=== PATIENT | female | born 1970 | race Caucasian/White ===

== ENCOUNTER → 2023-10-20 15:27 | Outpatient (REF) | payer BC, SELFPAY | LOC: HWRCS 15:27 | PROVIDERS: ATTENDING PHYSICIAN Nurse Practitioner | DX: I34.0 Nonrheumatic mitral (valve) insufficiency (principal) | CPT/HCPCS: 93306 ==

== ENCOUNTER 2023-11-11 18:15 | Emergency (ER) | payer BC, SELFPAY ==
[2023-11-11] VITALS (8 sets, daily range): BP systolic 139–162; BP diastolic 79–89; PULSE 99–122; BMI 21.2
--- NOTE | 2023-11-11 18:41 | ED.GENMED ---
History of Present Illness
General
Chief Complaint: Vaginal Bleeding
Source: patient
Exam Limitations: none
Time Seen by Provider: 11/11/23 18:41
Nursing documentation reviewed up to this point in time: agreed with
Travel History
Have you had any contact with someone who has COVID-19?: No
Do you have any symptoms of coronavirus? Fever > 100 degrees, chills, cough, shortness of breath, sore throat, loss of taste or smell, muscle aches, or headache?: No
History of Present Illness
History of Present Illness:
53-year-old female history of Fibromyalgia, GERD, iron deficiency anemia, presents stating she is having 'heavy menstrual bleeding' for the past 3 days. Today she felt lightheaded when she stood, she felt heart palpitations, and states 'I am
concerned about my blood volume.'
She states she was soaking a pad an hour 3 days ago, bleeding has slowed some and today she was using a pad every 2 hours. She denies abdominal pain.
She states she only wants to know what her blood count is because she has already had a comprehensive [facility] workup, had an ultrasound 2 months ago which shows uterine fibroids, so she already knows 'all of that.'
She does not take her iron supplements regularly as it 'bothers my stomach.'
Past History
Past History
ED Past Medical History: Other (Fibromyalgia, gastroparesis)
Social History
Tobacco: Non-smoker
Alcohol: None
Personal:
Living: with family
Review of Systems
Review of Systems
Allergies reviewed?: Yes
All Other Systems: ROS reviewed and negative except as documented in HPI and ROS
Constitutional: Denies fever or fatigue
Respiratory: Denies trouble breathing
Cardiac: Reports palpitations; Denies chest pain
ABD/GI: Denies abdominal pain, nausea, vomiting or diarrhea
: Reports bleeding (Heavy vaginal bleeding)
Musculoskeletal: Reports no symptoms
Skin: Reports no symptoms
Neurological: Reports no symptoms
Phy Exam
Physical Exam
Physical Exam:
GENERAL: No acute distress. A&Ox3.
CONSTITUTIONAL: Afebrile.
EYES: Clear, conjunctivae normal
ENMT: moist mucus membranes, Pharynx nl
RESPIRATORY: Regular respirations, nonlabored, lungs clear.
CARDIOVASCULAR: Regular rate and rhythm, no murmurs, no rubs.
GI: Soft, nontender, normal BS
: Menstrual pad observed with about 2 TBSP blood
MUSCULOSKELETAL: Moves with ease. Well perfused.
SKIN: Warm, dry, pink
PSYCH: Normal mood and affect. Well kept, interactive and appropriate
NEUROLOGIC: Awake, alert and oriented. No focal neurological deficits
Course
Orders/Labs/Results
Orders:
Orders
11/11/23 19:27
Type+Screen Urgent
CMP [Comprehensive Metabolic Panel] Stat
Complete Blood Count/With Diff Urgent
11/11/23 19:29
Orthostatic VS- Treatment ONCE
Abnormal Lab Results
11/11/23
19:27
Hgb 11.9 L g/dL
(12.0-16.0)
Hct 34.8 L %
(37.0-47.0)
RDW 15.7 H %
(11.5-14.5)
Lymphocytes % 20.1 L %
(20.5-51.1)
Glucose 109 H mg/dl
(70-99)
11/11/23 19:27
11/11/23 19:27
Vital Signs
Initial and Last Documented VS:
Initial Vital Signs
Temp Pulse Resp BP Pulse Ox
99.0 F 130 16 150/79 98
11/11/23 18:19 11/11/23 18:19 11/11/23 18:19 11/11/23 18:19 11/11/23 18:19
Last Documented Vital Signs
Temp Pulse Resp BP Pulse Ox
99.0 F 106 22 139/79 97
11/11/23 18:19 11/11/23 21:15 11/11/23 21:15 11/11/23 21:00 11/11/23 21:00
MDM/Problems Addressed
Differential Diagnosis Includes:
Dysfunctional uterine bleeding, anemia
MDM/Problems Addressed:
53-year-old female history of Fibromyalgia, GERD, iron deficiency anemia, presents stating she is having 'heavy menstrual bleeding' for the past 3 days. Today she felt lightheaded when she stood, she felt heart palpitations, and states 'I am
concerned about my blood volume.'
She states she was soaking a pad an hour 3 days ago, bleeding has slowed some and today she was using a pad every 2 hours. She denies abdominal pain.
She states she only wants to know what her blood count is because she has already had a comprehensive [facility] workup, had an ultrasound 2 months ago which shows uterine fibroids, so she already knows 'all of that.'
She does not take her iron supplements regularly as it 'bothers my stomach.'
11/11/2023 1932 PM
product assurance engineer during her stay reveals a heart rate of
CBC: Unremarkable Hgb on low side of normal
CMP: Normal
Patient informed that her hemoglobin is on the low end of normal but nothing needing emergent attention.
Again, offered Ultrasound but pt kindly declined and will contact her [facility] doctor on Monday (2 days)
Prescription for Lysteda sent to her pharmacy
She is appreciative of the care
*Critical Care Note
Total Time (30-74mins, 75-104mins- exclusive of procedures): Not Applicable
ED Attending Note
-
Portions of this chart may have been created with voice recognition software.� Occasional wrong word or��sound alike� substitutions may have occurred due to the inherent limitations of voice recognition software.
Discharge Plan
Departure
Patient Disposition: Home (Routine Discharge)
Date of Disposition: 11/11/23
Time of Disposition: 20:59
Patient with high blood pressure during this ER visit?: No
Condition: Good
Discharge Problem:
Abnormal vaginal bleeding
Instructions: Heavy Periods (DC)
Prescriptions:
New
tranexamic acid 650 mg tablet
650 mg PO TID 5 Days Qty: 15 0RF
No Action
acetaminophen-codeine 300-30 mg tablet
1 tab PO Q6H PRN (Reason: pain) Qty: 10 0RF
Referrals:
Your, [facility] doctor [Other] - Call in 1-3 days for appt
Ivana South CRNP [Family Provider] -
Activity Restrictions/Additional Instructions:
As we discussed, your lab work shows nothing worrisome. Your hemoglobin is on the low side of normal.
I sent a prescription to your pharmacy for the Lysteda to help slow or stop the bleeding. I sent it to your pharmacy so pick it up tomorrow and start it. Take it 3 times a day for up to 5 days. You may stop it if your bleeding slows down before 5
days.
Call your [facility] doctor on Monday and inform of today's visit.
Interventions
Interventions:
*Risk Screen - Suicide Last Done: 11/11/23 18:19
*General Assessment Last Done: 11/11/23 19:32
*Neglect/Abuse Screening Last Done: 11/11/23 18:19
ED- Fall Risk Assessment Last Done: 11/11/23 21:18
*ED COVID-19 Vaccine History Last Done: 11/11/23 18:19
*Nursing Disposition Last Done: 11/11/23 21:18
ED-Female Genitourinary Assessment Last Done: 11/11/23 19:33
Discharge Date and Time
Discharge Date/Time: 11/11/23 21:21
[2023-11-11 19:37] LABS: % Basophils 0.3 % (0-2); % Eosinophils 0.5 % (0-6); % Immature Granulocytes 0.1 % (0-0.5); % Lymphocytes 20.1 % (20.5-51.1); % Monocytes 8.8 % (1.7-9.3); % Neutrophils 70.2 % (42.2-75.2); Absolute Lymphocytes 1.5 10^3/uL (1.2-3.4); Absolute Monocytes 0.6 10^3/uL (0.1-0.6); Absolute Neutrophils 5.1 10^3/uL (1.4-6.5); Hematocrit 34.8 % (37.0-47.0); Hemoglobin 11.9 g/dL (12.0-16.0); Mean Corp Hgb Conc. 34.2 g/dL (33.0-37.0); Mean Corpuscular Hgb 28.2 pg (27.0-31.0); Mean Corpuscular Volume 82.5 fL (81.0-99.0); Mean Platelet Volume 8.9 fL (7.4-10.4); Nucleated Red Blood Cells % 0 %; Platelet Count 318 10^3/uL (130-400); Red Blood Cell Count 4.22 10^6/uL (4.20-5.40); Red Cell Dist. Width 15.7 % (11.5-14.5); White Blood Cell Count 7.3 10^3/uL (4.8-10.8)
[2023-11-11 19:48] LABS: ALT (SGPT) 14 U/L (0-35); AST (SGOT) 25 U/L (14-36); Albumin 4.2 g/dl (3.5-5.0); Alkaline Phosphatase 47 U/L (38-126); Blood Urea Nitrogen 9 mg/dl (7-17); Calcium 8.9 mg/dl (8.4-10.2); Carbon Dioxide 24 mmol/L (22-30); Chloride 104 mmol/L (98-107); Estimated Creatinine Clearance 74 ml/min; Glucose 109 mg/dl (70-99); Potassium 3.5 mmol/L (3.5-5.1); Sodium 135 mmol/L (135-145); Total Bilirubin 0.5 mg/dl (0.2-1.3); eGFR > 60.00
== END 2023-11-11 21:21 | disposition home or self-care (01) ==
LOC: EMR 18:15
PROVIDERS: Registered Nurse; EMERGENCY PHYSICIAN Emergency Medicine; FAMILY PHYSICIAN Nurse Practitioner
DX: N93.8 Other specified abnormal uterine and vaginal bleeding (principal); N92.0 Excessive and frequent menstruation with regular cycle; R42 Dizziness and giddiness; R00.2 Palpitations; M79.7 Fibromyalgia; K21.9 Gastro-esophageal reflux disease without esophagitis; D50.9 Iron deficiency anemia, unspecified; D25.9 Leiomyoma of uterus, unspecified; K31.84 Gastroparesis; Z88.8 Allergy status to other drugs, medicaments and biological substances
CPT/HCPCS: 99283; 80053; 85025; 86850; 86900; 86901

== ENCOUNTER 2023-11-13 10:09 | Emergency (ER) | payer BC, SELFPAY ==
[2023-11-13 10:11] VITALS: BP 137/102
--- NOTE | 2023-11-13 10:26 | ED.GENMED ---
History of Present Illness
General
Chief Complaint: Vaginal Bleeding
Source: patient
Exam Limitations: none
Time Seen by Provider: 11/13/23 10:21
Nursing documentation reviewed up to this point in time: agreed with
Travel History
Have you had any contact with someone who has COVID-19?: No
Do you have any symptoms of coronavirus? Fever > 100 degrees, chills, cough, shortness of breath, sore throat, loss of taste or smell, muscle aches, or headache?: No
History of Present Illness
History of Present Illness:
53-year-old female here for 2nd visit in 3 days for heavy vaginal bleeding. She is here for the same thing 2 days ago and evaluated by this examiner. It was determined at that time not to do an ultrasound at her request as she had this similar
symptoms 2 months ago and had an ultrasound that showed fibroids which she already knew she had and she knows she needs to make a [facility] appointment which she has not done yet. Hemoglobin on that day was 11.9 she was hemodynamically stable. I
discharged her on Lysteda and referred her to [facility].
She states she took the Lysteda yesterday and her bleeding slowed down so she didn't take any more. Today upon arising, had a 'gush' of vaginal bleeding.
She is due to go to [place] for 's mom's and wants to be sure she is stable to go.
She called [facility] doctor this a.m. and couldn't get appt for 2 weeks.
Past History
Past History
ED Past Medical History: Other (Fibromyalgia, gastroparesis, uterine fibroids)
Social History
Tobacco: Non-smoker
Alcohol: None
Personal:
Living: with family
Review of Systems
Review of Systems
Allergies reviewed?: Yes
All Other Systems: ROS reviewed and negative except as documented in HPI and ROS
Constitutional: Denies fever or fatigue
Respiratory: Denies trouble breathing
Cardiac: Denies chest pain
ABD/GI: Denies abdominal pain or nausea
: Reports bleeding
Skin: Reports no symptoms
Neurological: Reports no symptoms
Phy Exam
Physical Exam
Physical Exam:
GENERAL: No acute distress. A&Ox3.
CONSTITUTIONAL: Afebrile.
EYES: clear, conjunctivae normal
ENMT: moist mucus membranes, Pharynx nl
RESPIRATORY: Regular respirations, nonlabored, lungs clear.
CARDIOVASCULAR: Regular rate and rhythm, no murmurs, no rubs.
GI: Soft, nontender, normal BS
small amount blood on pad
MUSCULOSKELETAL: Moves with ease. Well perfused.
SKIN: Warm, dry, pink
PSYCH: Normal mood and affect. Well kept, interactive and appropriate
NEUROLOGIC: Awake, alert and oriented. No focal neurological deficits
Course
Orders/Labs/Results
Orders:
Orders
11/13/23 10:21
US Pelvis W Transvag Combined Urgent
Reason For Exam: heavy vag bleeding
11/13/23 10:34
Complete Blood Count/With Diff Urgent
Abnormal Lab Results
11/13/23
10:34
RBC 3.96 L 10^6/uL
(4.20-5.40)
Hgb 11.2 L g/dL
(12.0-16.0)
Hct 33.0 L %
(37.0-47.0)
RDW 15.7 H %
(11.5-14.5)
11/13/23 10:34
Vital Signs
Initial and Last Documented VS:
Initial Vital Signs
Temp Pulse Resp BP Pulse Ox
98.0 F 78 16 137/102 98
11/13/23 10:11 11/13/23 10:11 11/13/23 10:11 11/13/23 10:11 11/13/23 10:11
Last Documented Vital Signs
Temp Pulse Resp BP Pulse Ox
98.0 F 78 16 136/80 98
11/13/23 10:11 11/13/23 10:11 11/13/23 10:11 11/13/23 12:52 11/13/23 10:11
MDM/Problems Addressed
Differential Diagnosis Includes:
uterine fibroid, hormone imbalance, menopause
MDM/Problems Addressed:
53-year-old female here for 2nd visit in 3 days for heavy vaginal bleeding. She is here for the same thing 2 days ago and evaluated by this examiner. It was determined at that time not to do an ultrasound at her request as she had this similar
symptoms 2 months ago and had an ultrasound that showed fibroids which she already knew she had and she knows she needs to make a [facility] appointment which she has not done yet. Hemoglobin on that day was 11.9 she was hemodynamically stable. I
discharged her on Lysteda and referred her to [facility].
She states she took the Lysteda yesterday and her bleeding slowed down so she didn't take any more. Today upon arising, had a 'gush' of vaginal bleeding.
She is due to go to [place] for 's mom's and wants to be sure she is stable to go.
She called [facility] doctor this a.m. and couldn't get appt for 2 weeks.
NAD, hemodynamically stable.
11/13/2023 1211 PM
CBC: Hemoglobin 11.2, was 11.92 days ago
Pelvic ultrasound: Radiology report reviewed: IMPRESSION:
1).There is significant thickening of the endometrial cavity echo complex which measures 3.2 cm such as may be seen in a variety of entities including endometrial hyperplasia, endometritis and endometrial carcinoma
2). Enlarged fibroid uterus
3). Bilateral ovarian cysts
consulted [facility] CYT[facility] Dr. Talamantes, texted her copy of ultrasound report and labs
She will have someone from her office call patient today to make an appointment for this week. She recommends continuing the Lysteda to twice a day.
Patient question whether this ultrasound was needed from the last ultrasound, I gave her a copy of her last ultrasound from 05/11/2023, results reviewed and all questions answered.
*Critical Care Note
Total Time (30-74mins, 75-104mins- exclusive of procedures): Not Applicable
ED Attending Note
-
Portions of this chart may have been created with voice recognition software.� Occasional wrong word or��sound alike� substitutions may have occurred due to the inherent limitations of voice recognition software.
Discharge Plan
Departure
Patient Disposition: Home (Routine Discharge)
Date of Disposition: 11/13/23
Time of Disposition: 12:56
Patient with high blood pressure during this ER visit?: No
Condition: Fair
Discharge Problem:
Abnormal vaginal bleeding
Instructions: Heavy Periods (DC)
Prescriptions:
No Action
cyclobenzaprine 10 mg Tablet
10 mg PO HS PRN (Reason: muscle spasms)
Patient Comments:
11/13/2023, [facility] records from 09/01/2023. #14 tablets.
polyethylene glycol 3350 [Miralax] 17 gram Powder In Packet
17 g PO DAILY PRN (Reason: constipation)
Theragen Tablet
1 tab PO DAILY
acetaminophen [Tylenol Extra Strength] 500 mg Tablet
500 mg PO DAILYPRN PRN (Reason: mild pain)
calcium carbonate [Calcium 500] 500 mg calcium (1,250 mg) Tablet
500 mg PO DAILY
ibuprofen [Advil] 200 mg Tablet
200 mg PO DAILYPRN PRN (Reason: mild pain)
esomeprazole magnesium [Nexium] 20 mg Capsule,Delayed Release(Dr/Ec)
20 mg PO .MID-DAY
melatonin 1 mg Tablet
2 mg PO HS
cholecalciferol (vitamin D3) 50 mcg (2,000 unit) Tablet
50 mcg PO DAILY
Vitamin C
1 tab PO DAILY
Referrals:
Bita Talamantes MD [Active] - Keep scheduled appt
Ivana South CRNP [Family Provider] -
Activity Restrictions/Additional Instructions:
As we discussed, someone from Dr. Talamantes's office will call you today and set up an appointment for this week.
Continue the Lysteda, take it twice a day
Return here immediately if you have significant increase in vaginal bleeding with large clots, get short of breath or chest pain or feel faint
Drink plenty of fluids
Interventions
Interventions:
*Risk Screen - Suicide Last Done: 11/13/23 10:25
*General Assessment Last Done: 11/13/23 10:25
*Neglect/Abuse Screening Last Done: 11/13/23 10:25
ED- Fall Risk Assessment Last Done: 11/13/23 10:25
*ED COVID-19 Vaccine History Last Done: 11/13/23 10:11
*Nursing Disposition Last Done: 11/13/23 13:12
ED-Female Genitourinary Assessment Last Done: 11/13/23 10:25
Discharge Date and Time
Discharge Date/Time: 11/13/23 13:12
[2023-11-13 10:45] LABS: % Basophils 0.4 % (0-2); % Immature Granulocytes 0.2 % (0-0.5); % Lymphocytes 32.4 % (20.5-51.1); % Monocytes 7.8 % (1.7-9.3); % Neutrophils 58.2 % (42.2-75.2); Absolute Eosinophils 0.1 10^3/uL (0-0.7); Absolute Lymphocytes 1.6 10^3/uL (1.2-3.4); Absolute Monocytes 0.4 10^3/uL (0.1-0.6); Absolute Neutrophils 2.8 10^3/uL (1.4-6.5); Hemoglobin 11.2 g/dL (12.0-16.0); Mean Corp Hgb Conc. 33.9 g/dL (33.0-37.0); Mean Corpuscular Hgb 28.3 pg (27.0-31.0); Mean Corpuscular Volume 83.3 fL (81.0-99.0); Mean Platelet Volume 9.2 fL (7.4-10.4); Nucleated Red Blood Cells % 0 %; Platelet Count 327 10^3/uL (130-400); Red Blood Cell Count 3.96 10^6/uL (4.20-5.40); Red Cell Dist. Width 15.7 % (11.5-14.5); White Blood Cell Count 4.9 10^3/uL (4.8-10.8)
[2023-11-13 12:52] VITALS: BP 136/80
== END 2023-11-13 13:12 | disposition home or self-care (01) ==
LOC: EMR 10:09
PROVIDERS: Registered Nurse; EMERGENCY PHYSICIAN Emergency Medicine; FAMILY PHYSICIAN Nurse Practitioner
DX: N93.9 Abnormal uterine and vaginal bleeding, unspecified (principal); D25.9 Leiomyoma of uterus, unspecified; N83.202 Unspecified ovarian cyst, left side; N83.201 Unspecified ovarian cyst, right side
CPT/HCPCS: 99284; 76830; 76856; 85025

== ENCOUNTER → 2023-11-15 14:46 | Outpatient (REF) | payer BC, SELFPAY ==
[2023-11-15 15:19] LABS: % Basophils 0.3 % (0-2); % Eosinophils 0.4 % (0-6); % Immature Granulocytes 0.3 % (0-0.5); % Lymphocytes 20.4 % (20.5-51.1); % Monocytes 6.8 % (1.7-9.3); % Neutrophils 71.8 % (42.2-75.2); Absolute Lymphocytes 1.4 10^3/uL (1.2-3.4); Absolute Monocytes 0.5 10^3/uL (0.1-0.6); Absolute Neutrophils 4.9 10^3/uL (1.4-6.5); Hematocrit 32.6 % (37.0-47.0); Hemoglobin 11.1 g/dL (12.0-16.0); Mean Corpuscular Hgb 28.5 pg (27.0-31.0); Mean Corpuscular Volume 83.8 fL (81.0-99.0); Mean Platelet Volume 9.2 fL (7.4-10.4); Nucleated Red Blood Cells % 0 %; Platelet Count 371 10^3/uL (130-400); Red Blood Cell Count 3.89 10^6/uL (4.20-5.40); Red Cell Dist. Width 15.9 % (11.5-14.5); White Blood Cell Count 6.8 10^3/uL (4.8-10.8)
[2023-11-15 15:31] LABS: Iron 29 ug/dl (37-170)
[2023-11-15 15:40] LABS: Percent Saturation 8 % (20-50); Total Iron Binding Capacity 344 ug/dl (265-497)
[2023-11-15 16:08] LABS: Ferritin 9.5 ng/ml (11.1-264.0)
== END ==
LOC: REG 14:46
PROVIDERS: ATTENDING PHYSICIAN Nurse Practitioner Adult Health; FAMILY PHYSICIAN Nurse Practitioner
DX: N93.9 Abnormal uterine and vaginal bleeding, unspecified (principal)
CPT/HCPCS: 36415; 82728; 83540; 83550; 85025

== ENCOUNTER → 2023-12-05 17:05 | Outpatient (REF) | payer BC, MEDICARE, SELFPAY ==
[2023-12-06 06:55] LABS: % Basophils 0.3 % (0-2); % Immature Granulocytes 0.2 % (0-0.5); % Lymphocytes 21.9 % (20.5-51.1); % Neutrophils 69.6 % (42.2-75.2); Absolute Eosinophils 0.1 10^3/uL (0-0.7); Absolute Lymphocytes 1.4 10^3/uL (1.2-3.4); Absolute Monocytes 0.4 10^3/uL (0.1-0.6); Absolute Neutrophils 4.3 10^3/uL (1.4-6.5); Hematocrit 36.8 % (37.0-47.0); Hemoglobin 11.1 g/dL (12.0-16.0); Mean Corp Hgb Conc. 30.2 g/dL (33.0-37.0); Mean Corpuscular Hgb 27.5 pg (27.0-31.0); Mean Corpuscular Volume 91.3 fL (81.0-99.0); Mean Platelet Volume 9.6 fL (7.4-10.4); Nucleated Red Blood Cells % 0 %; Platelet Count 565 10^3/uL (130-400); Red Blood Cell Count 4.03 10^6/uL (4.20-5.40); White Blood Cell Count 6.2 10^3/uL (4.8-10.8)
== END ==
LOC: REG 17:05
PROVIDERS: ATTENDING PHYSICIAN Nurse Practitioner
DX: N93.9 Abnormal uterine and vaginal bleeding, unspecified (principal); D64.9 Anemia, unspecified
CPT/HCPCS: 85025

== ENCOUNTER → 2023-12-06 15:54 | Outpatient (REF) | payer BC, MEDICARE, SELFPAY ==
[2023-12-06 18:36] LABS: Iron 108 ug/dl (37-170)
[2023-12-06 18:45] LABS: Percent Saturation 30 % (20-50); Total Iron Binding Capacity 360 ug/dl (265-497)
[2023-12-06 19:13] LABS: Ferritin 19.3 ng/ml (11.1-264.0)
== END ==
LOC: REG 15:54
PROVIDERS: ATTENDING PHYSICIAN Nurse Practitioner
DX: N93.9 Abnormal uterine and vaginal bleeding, unspecified (principal); D64.0 Hereditary sideroblastic anemia
CPT/HCPCS: 82728; 83540; 83550

== ENCOUNTER → 2023-12-25 16:59 | Outpatient (REF) | payer BC, MEDICARE, SELFPAY ==
[2023-12-25 17:52] LABS: % Basophils 0.5 % (0-2); % Eosinophils 0.8 % (0-6); % Immature Granulocytes 0.3 % (0-0.5); % Lymphocytes 22.8 % (20.5-51.1); % Monocytes 5.6 % (1.7-9.3); Absolute Eosinophils 0.1 10^3/uL (0-0.7); Absolute Lymphocytes 1.7 10^3/uL (1.2-3.4); Absolute Monocytes 0.4 10^3/uL (0.1-0.6); Absolute Neutrophils 5.2 10^3/uL (1.4-6.5); Hemoglobin 12.6 g/dL (12.0-16.0); Mean Corp Hgb Conc. 33.2 g/dL (33.0-37.0); Mean Corpuscular Hgb 28.1 pg (27.0-31.0); Mean Corpuscular Volume 84.8 fL (81.0-99.0); Mean Platelet Volume 9.2 fL (7.4-10.4); Nucleated Red Blood Cells % 0 %; Platelet Count 454 10^3/uL (130-400); Red Blood Cell Count 4.48 10^6/uL (4.20-5.40); White Blood Cell Count 7.4 10^3/uL (4.8-10.8)
[2023-12-25 18:12] LABS: Iron 52 ug/dl (37-170)
[2023-12-25 18:14] LABS: Percent Saturation 14 % (20-50); Total Iron Binding Capacity 370 ug/dl (265-497)
[2023-12-25 18:42] LABS: Ferritin 9.5 ng/ml (11.1-264.0)
== END ==
LOC: REG 16:59
PROVIDERS: ATTENDING PHYSICIAN Nurse Practitioner
DX: N93.9 Abnormal uterine and vaginal bleeding, unspecified (principal); D64.9 Anemia, unspecified
CPT/HCPCS: 36415; 82728; 83540; 83550; 85025

== ENCOUNTER → 2024-01-24 16:48 | Outpatient (REF) | payer BC, SELFPAY | LOC: HWWDC 16:48 | PROVIDERS: ATTENDING PHYSICIAN Nurse Practitioner Adult Health; FAMILY PHYSICIAN Nurse Practitioner | DX: Z12.31 Encounter for screening mammogram for malignant neoplasm of breast (principal) | CPT/HCPCS: 77063; 77067 ==

== ENCOUNTER → 2024-01-29 16:28 | Outpatient (REF) | payer BC, MEDICARE, SELFPAY ==
[2024-01-29 17:43] LABS: % Basophils 0.4 % (0-2); % Immature Granulocytes 0.4 % (0-0.5); % Monocytes 6.8 % (1.7-9.3); % Neutrophils 74.4 % (42.2-75.2); Absolute Eosinophils 0.1 10^3/uL (0-0.7); Absolute Lymphocytes 1.4 10^3/uL (1.2-3.4); Absolute Monocytes 0.6 10^3/uL (0.1-0.6); Absolute Neutrophils 6.3 10^3/uL (1.4-6.5); Hematocrit 37.6 % (37.0-47.0); Hemoglobin 12.5 g/dL (12.0-16.0); Mean Corp Hgb Conc. 33.2 g/dL (33.0-37.0); Mean Corpuscular Hgb 27.7 pg (27.0-31.0); Mean Corpuscular Volume 83.2 fL (81.0-99.0); Mean Platelet Volume 9.4 fL (7.4-10.4); Nucleated Red Blood Cells % 0 %; Platelet Count 389 10^3/uL (130-400); Red Blood Cell Count 4.52 10^6/uL (4.20-5.40); Red Cell Dist. Width 15.6 % (11.5-14.5); White Blood Cell Count 8.4 10^3/uL (4.8-10.8)
[2024-01-29 17:58] LABS: Blood Urea Nitrogen 11 mg/dl (7-17); Calcium 9.4 mg/dl (8.4-10.2); Carbon Dioxide 24 mmol/L (22-30); Chloride 104 mmol/L (98-107); Glucose 95 mg/dl (70-99); Potassium 4.2 mmol/L (3.5-5.1); Sodium 140 mmol/L (135-145); eGFR > 60.00
== END ==
LOC: RAD 16:28
PROVIDERS: FAMILY PHYSICIAN Nurse Practitioner
DX: Z01.818 Encounter for other preprocedural examination (principal)
CPT/HCPCS: 36415; 80048; 85025

== ENCOUNTER → 2024-02-23 16:20 | Outpatient (REF) | payer BC, MEDICARE, SELFPAY ==
[2024-02-23 17:17] LABS: % Basophils 0.5 % (0-2); % Eosinophils 0.7 % (0-6); % Immature Granulocytes 0.1 % (0-0.5); % Lymphocytes 18.9 % (20.5-51.1); % Monocytes 6.6 % (1.7-9.3); % Neutrophils 73.2 % (42.2-75.2); Absolute Eosinophils 0.1 10^3/uL (0-0.7); Absolute Lymphocytes 1.6 10^3/uL (1.2-3.4); Absolute Monocytes 0.5 10^3/uL (0.1-0.6); Hematocrit 41.6 % (37.0-47.0); Hemoglobin 13.3 g/dL (12.0-16.0); Mean Corpuscular Hgb 27.3 pg (27.0-31.0); Mean Corpuscular Volume 85.4 fL (81.0-99.0); Mean Platelet Volume 9.2 fL (7.4-10.4); Nucleated Red Blood Cells % 0 %; Platelet Count 409 10^3/uL (130-400); Red Blood Cell Count 4.87 10^6/uL (4.20-5.40); Red Cell Dist. Width 15.9 % (11.5-14.5); White Blood Cell Count 8.2 10^3/uL (4.8-10.8)
[2024-02-23 17:25] LABS: Iron 75 ug/dl (37-170)
[2024-02-23 17:35] LABS: Percent Saturation 20 % (20-50); Total Iron Binding Capacity 371 ug/dl (265-497)
[2024-02-23 18:04] LABS: Ferritin 16.4 ng/ml (11.1-264.0)
== END ==
LOC: RAD 16:20
PROVIDERS: ATTENDING PHYSICIAN Obstetrics & Gynecology Gynecology; FAMILY PHYSICIAN Nurse Practitioner
DX: N93.9 Abnormal uterine and vaginal bleeding, unspecified (principal)
CPT/HCPCS: 36415; 82728; 83540; 83550; 85025

== ENCOUNTER → 2024-05-11 11:38 | Outpatient (REF) | payer BC, MEDICARE, SELFPAY ==
[2024-05-11 12:24] LABS: % Basophils 0.6 % (0-2); % Eosinophils 1.3 % (0-6); % Immature Granulocytes 0.5 % (0-0.5); % Lymphocytes 24.9 % (20.5-51.1); % Monocytes 6.7 % (1.7-9.3); Absolute Eosinophils 0.1 10^3/uL (0-0.7); Absolute Lymphocytes 1.6 10^3/uL (1.2-3.4); Absolute Monocytes 0.4 10^3/uL (0.1-0.6); Absolute Neutrophils 4.1 10^3/uL (1.4-6.5); Hematocrit 39.5 % (37.0-47.0); Hemoglobin 13.2 g/dL (12.0-16.0); Mean Corp Hgb Conc. 33.4 g/dL (33.0-37.0); Mean Corpuscular Hgb 28.1 pg (27.0-31.0); Mean Corpuscular Volume 84.2 fL (81.0-99.0); Mean Platelet Volume 9.2 fL (7.4-10.4); Nucleated Red Blood Cells % 0 %; Platelet Count 475 10^3/uL (130-400); Red Blood Cell Count 4.69 10^6/uL (4.20-5.40); White Blood Cell Count 6.3 10^3/uL (4.8-10.8)
[2024-05-11 12:42] LABS: Iron 80 ug/dl (37-170)
[2024-05-11 12:52] LABS: Percent Saturation 21 % (20-50); Total Iron Binding Capacity 374 ug/dl (265-497)
[2024-05-11 13:20] LABS: Ferritin 8.2 ng/ml (11.1-264.0)
== END ==
LOC: REG 11:38
PROVIDERS: ATTENDING PHYSICIAN Obstetrics & Gynecology Gynecology; FAMILY PHYSICIAN Nurse Practitioner
DX: N93.9 Abnormal uterine and vaginal bleeding, unspecified (principal)
CPT/HCPCS: 36415; 82728; 83540; 83550; 85025

== ENCOUNTER → 2024-06-27 12:18 | Outpatient (REF) | payer BC, MEDICARE, SELFPAY ==
[2024-06-27 13:20] LABS: % Basophils 0.4 % (0-2); % Eosinophils 1.2 % (0-6); % Immature Granulocytes 0.1 % (0-0.5); % Lymphocytes 24.1 % (20.5-51.1); % Monocytes 6.7 % (1.7-9.3); % Neutrophils 67.5 % (42.2-75.2); Absolute Eosinophils 0.1 10^3/uL (0-0.7); Absolute Lymphocytes 1.7 10^3/uL (1.2-3.4); Absolute Monocytes 0.5 10^3/uL (0.1-0.6); Absolute Neutrophils 4.6 10^3/uL (1.4-6.5); Hematocrit 42.6 % (37.0-47.0); Hemoglobin 14.2 g/dL (12.0-16.0); Mean Corp Hgb Conc. 33.3 g/dL (33.0-37.0); Mean Corpuscular Hgb 28.6 pg (27.0-31.0); Mean Corpuscular Volume 85.7 fL (81.0-99.0); Mean Platelet Volume 9.2 fL (7.4-10.4); Nucleated Red Blood Cells % 0 %; Platelet Count 438 10^3/uL (130-400); Red Blood Cell Count 4.97 10^6/uL (4.20-5.40); White Blood Cell Count 6.9 10^3/uL (4.8-10.8)
[2024-06-27 13:28] LABS: Iron 111 ug/dl (37-170)
[2024-06-27 13:38] LABS: Percent Saturation 30 % (20-50); Total Iron Binding Capacity 369 ug/dl (265-497)
== END ==
LOC: REG 12:18
PROVIDERS: ATTENDING PHYSICIAN Physician Assistant Medical; FAMILY PHYSICIAN Nurse Practitioner
DX: N92.4 Excessive bleeding in the premenopausal period (principal)
CPT/HCPCS: 36415; 83540; 83550; 85025

== ENCOUNTER → 2024-07-23 11:21 | Outpatient (REF) | payer BC, MEDICARE, SELFPAY ==
[2024-07-23 13:28] LABS: Erythrocyte Sed Rate 10 mm/hour (0-20)
[2024-07-23 13:31] LABS: ALT (SGPT) 18 U/L (0-35); AST (SGOT) 27 U/L (14-36); Albumin 4.2 g/dl (3.5-5.0); Alkaline Phosphatase 47 U/L (38-126); Blood Urea Nitrogen 6 mg/dl (7-17); Calcium 9.2 mg/dl (8.4-10.2); Carbon Dioxide 23 mmol/L (22-30); Chloride 103 mmol/L (98-107); Glucose 80 mg/dl (70-99); Potassium 4.2 mmol/L (3.5-5.1); Sodium 140 mmol/L (135-145); Total Bilirubin 0.3 mg/dl (0.2-1.3); Total Protein 6.9 g/dl (6.3-8.2); eGFR > 60.00
[2024-07-23 13:49] LABS: Vitamin D, 25-OH*** 45.7 ng/mL (30-80)
[2024-07-23 14:02] LABS: TSH Reflex To Free T4 1.31 uIU/ml (0.47-4.68)
[2024-07-23 14:38] LABS: Folate 19.4 ng/ml (2.76-20)
[2024-07-23 15:37] LABS: Vitamin B12 553 pg/ml (239-931)
== END ==
LOC: REG 11:21
PROVIDERS: ATTENDING PHYSICIAN Student in an Organized Health Care Education/Training Program; FAMILY PHYSICIAN Nurse Practitioner
DX: M79.7 Fibromyalgia (principal)
CPT/HCPCS: 36415; 80053; 82306; 82607; 82746; 84443; 85652; 86140

== ENCOUNTER → 2024-08-09 13:40 | Outpatient (REF) | payer BC, MEDICARE, SELFPAY ==
[2024-08-09 14:44] LABS: Iron 105 ug/dl (37-170)
[2024-08-09 14:57] LABS: Percent Saturation 27 % (20-50); Total Iron Binding Capacity 384 ug/dl (265-497)
[2024-08-09 15:26] LABS: Ferritin 24.4 ng/ml (11.1-264.0)
== END ==
LOC: REG 13:40
PROVIDERS: FAMILY PHYSICIAN Nurse Practitioner
DX: N93.9 Abnormal uterine and vaginal bleeding, unspecified (principal)
CPT/HCPCS: 36415; 82728; 83540; 83550

== ENCOUNTER → 2024-08-14 15:39 | Outpatient (REF) | payer BC, MEDICARE, SELFPAY ==
[2024-08-14 16:18] LABS: % Basophils 0.3 % (0-2); % Eosinophils 0.8 % (0-6); % Immature Granulocytes 0.2 % (0-0.5); % Lymphocytes 23.7 % (20.5-51.1); % Monocytes 7.3 % (1.7-9.3); % Neutrophils 67.7 % (42.2-75.2); Absolute Eosinophils 0.1 10^3/uL (0-0.7); Absolute Lymphocytes 1.5 10^3/uL (1.2-3.4); Absolute Monocytes 0.5 10^3/uL (0.1-0.6); Absolute Neutrophils 4.3 10^3/uL (1.4-6.5); Hematocrit 45.3 % (37.0-47.0); Hemoglobin 14.7 g/dL (12.0-16.0); Mean Corp Hgb Conc. 32.5 g/dL (33.0-37.0); Mean Corpuscular Hgb 28.7 pg (27.0-31.0); Mean Corpuscular Volume 88.3 fL (81.0-99.0); Nucleated Red Blood Cells % 0 %; Platelet Count 402 10^3/uL (130-400); Red Blood Cell Count 5.13 10^6/uL (4.20-5.40); Red Cell Dist. Width 15.9 % (11.5-14.5); White Blood Cell Count 6.3 10^3/uL (4.8-10.8)
== END ==
LOC: REG 15:39
PROVIDERS: FAMILY PHYSICIAN Nurse Practitioner
DX: N93.9 Abnormal uterine and vaginal bleeding, unspecified (principal)
CPT/HCPCS: 36415; 85025

== ENCOUNTER → 2024-10-09 17:08 | Outpatient (REF) | payer BC, MEDICARE, SELFPAY | LOC: RAD 17:08 | PROVIDERS: ATTENDING PHYSICIAN Nurse Practitioner | DX: D21.9 Benign neoplasm of connective and other soft tissue, unspecified (principal) | CPT/HCPCS: 76830; 76856 ==

== ENCOUNTER → 2024-10-22 16:10 | Outpatient (REF) | payer BC, MEDICARE, SELFPAY ==
[2024-10-22 17:57] LABS: % Basophils 0.3 % (0-2); % Immature Granulocytes 0.2 % (0-0.5); % Lymphocytes 25.2 % (20.5-51.1); % Monocytes 8.6 % (1.7-9.3); % Neutrophils 64.7 % (42.2-75.2); Absolute Eosinophils 0.1 10^3/uL (0-0.7); Absolute Lymphocytes 1.6 10^3/uL (1.2-3.4); Absolute Monocytes 0.5 10^3/uL (0.1-0.6); Absolute Neutrophils 4.1 10^3/uL (1.4-6.5); Hematocrit 44.3 % (37.0-47.0); Hemoglobin 14.7 g/dL (12.0-16.0); Mean Corp Hgb Conc. 33.2 g/dL (33.0-37.0); Mean Corpuscular Hgb 29.1 pg (27.0-31.0); Mean Corpuscular Volume 87.5 fL (81.0-99.0); Mean Platelet Volume 9.4 fL (7.4-10.4); Nucleated Red Blood Cells % 0 %; Platelet Count 388 10^3/uL (130-400); Red Blood Cell Count 5.06 10^6/uL (4.20-5.40); Red Cell Dist. Width 15.5 % (11.5-14.5); White Blood Cell Count 6.3 10^3/uL (4.8-10.8)
== END ==
LOC: RCS 16:10
PROVIDERS: ATTENDING PHYSICIAN Obstetrics & Gynecology Gynecology; FAMILY PHYSICIAN Nurse Practitioner
DX: Z01.818 Encounter for other preprocedural examination (principal)
CPT/HCPCS: 36415; 85025; 93005

== ENCOUNTER → 2024-11-25 16:27 | Outpatient (REF) | payer BC, MEDICARE, SELFPAY ==
[2024-11-25 17:41] LABS: % Basophils 0.4 % (0-2); % Immature Granulocytes 0.2 % (0-0.5); % Lymphocytes 20.6 % (20.5-51.1); % Monocytes 6.4 % (1.7-9.3); % Neutrophils 71.4 % (42.2-75.2); Absolute Eosinophils 0.1 10^3/uL (0-0.7); Absolute Lymphocytes 1.7 10^3/uL (1.2-3.4); Absolute Monocytes 0.5 10^3/uL (0.1-0.6); Hematocrit 44.1 % (37.0-47.0); Hemoglobin 14.9 g/dL (12.0-16.0); Mean Corp Hgb Conc. 33.8 g/dL (33.0-37.0); Mean Corpuscular Hgb 29.8 pg (27.0-31.0); Mean Corpuscular Volume 88.2 fL (81.0-99.0); Mean Platelet Volume 9.4 fL (7.4-10.4); Nucleated Red Blood Cells % 0 %; Platelet Count 350 10^3/uL (130-400); Red Cell Dist. Width 15.5 % (11.5-14.5); White Blood Cell Count 8.3 10^3/uL (4.8-10.8)
[2024-11-25 17:45] LABS: Iron 81 ug/dl (37-170)
[2024-11-25 17:55] LABS: Percent Saturation 23 % (20-50); Total Iron Binding Capacity 342 ug/dl (265-497)
[2024-11-25 18:20] LABS: Ferritin 22.9 ng/ml (11.1-264.0)
== END ==
LOC: REG 16:27
PROVIDERS: FAMILY PHYSICIAN Nurse Practitioner
DX: N93.9 Abnormal uterine and vaginal bleeding, unspecified (principal)
CPT/HCPCS: 36415; 82728; 83540; 83550; 85025

== ENCOUNTER → 2025-01-07 16:14 | Outpatient (REF) | payer BC, MEDICARE, SELFPAY ==
[2025-01-07 17:12] LABS: % Basophils 0.6 % (0-2); % Eosinophils 1.1 % (0-6); % Immature Granulocytes 0.2 % (0-0.5); % Lymphocytes 25.6 % (20.5-51.1); % Monocytes 7.6 % (1.7-9.3); % Neutrophils 64.9 % (42.2-75.2); Absolute Eosinophils 0.1 10^3/uL (0-0.7); Absolute Lymphocytes 1.6 10^3/uL (1.2-3.4); Absolute Monocytes 0.5 10^3/uL (0.1-0.6); Absolute Neutrophils 4.1 10^3/uL (1.4-6.5); Hematocrit 45.5 % (37.0-47.0); Hemoglobin 15.6 g/dL (12.0-16.0); Mean Corp Hgb Conc. 34.3 g/dL (33.0-37.0); Mean Corpuscular Volume 90.5 fL (81.0-99.0); Mean Platelet Volume 9.3 fL (7.4-10.4); Nucleated Red Blood Cells % 0 %; Platelet Count 370 10^3/uL (130-400); Red Blood Cell Count 5.03 10^6/uL (4.20-5.40); Red Cell Dist. Width 15.6 % (11.5-14.5); White Blood Cell Count 6.3 10^3/uL (4.8-10.8)
[2025-01-07 17:37] LABS: ALT (SGPT) 21 U/L (0-35); AST (SGOT) 26 U/L (14-36); Albumin 4.5 g/dl (3.5-5.0); Alkaline Phosphatase 55 U/L (38-126); Blood Urea Nitrogen 9 mg/dl (7-17); Calcium 9.2 mg/dl (8.4-10.2); Carbon Dioxide 26 mmol/L (22-30); Chloride 105 mmol/L (98-107); Glucose 80 mg/dl (70-99); Potassium 4.5 mmol/L (3.5-5.1); Sodium 141 mmol/L (135-145); Total Bilirubin 0.7 mg/dl (0.2-1.3); Total Protein 7.2 g/dl (6.3-8.2); eGFR > 60.00
[2025-01-07 17:54] LABS: Erythrocyte Sed Rate 6 mm/hour (0-20); FSH < 0.7 mIU/ml
[2025-01-07 18:08] LABS: TSH Reflex To Free T4 1.64 uIU/ml (0.47-4.68)
== END ==
LOC: REG 16:14
PROVIDERS: ATTENDING PHYSICIAN Obstetrics & Gynecology Gynecology; FAMILY PHYSICIAN Student in an Organized Health Care Education/Training Program
DX: E61.1 Iron deficiency (principal); N93.9 Abnormal uterine and vaginal bleeding, unspecified
CPT/HCPCS: 36415; 80053; 83001; 84443; 85025; 85652; 86140

== ENCOUNTER → 2025-02-08 10:30 | Outpatient (REF) | payer BC, SELFPAY ==
[2025-02-08 11:31] LABS: % Basophils 0.4 % (0-2); % Eosinophils 1.8 % (0-6); % Immature Granulocytes 0.2 % (0-0.5); % Lymphocytes 25.3 % (20.5-51.1); % Monocytes 6.6 % (1.7-9.3); % Neutrophils 65.7 % (42.2-75.2); Absolute Eosinophils 0.1 10^3/uL (0-0.7); Absolute Lymphocytes 1.3 10^3/uL (1.2-3.4); Absolute Monocytes 0.3 10^3/uL (0.1-0.6); Absolute Neutrophils 3.3 10^3/uL (1.4-6.5); Hemoglobin 16.5 g/dL (12.0-16.0); Mean Corp Hgb Conc. 33.7 g/dL (33.0-37.0); Mean Corpuscular Hgb 30.3 pg (27.0-31.0); Mean Corpuscular Volume 90.1 fL (81.0-99.0); Mean Platelet Volume 9.4 fL (7.4-10.4); Nucleated Red Blood Cells % 0 %; Platelet Count 336 10^3/uL (130-400); Red Blood Cell Count 5.44 10^6/uL (4.20-5.40); Red Cell Dist. Width 14.1 % (11.5-14.5)
[2025-02-08 12:00] LABS: ALT (SGPT) 20 U/L (0-35); AST (SGOT) 28 U/L (14-36); Albumin 4.7 g/dl (3.5-5.0); Alkaline Phosphatase 46 U/L (38-126); Blood Urea Nitrogen 11 mg/dl (7-17); Carbon Dioxide 30 mmol/L (22-30); Chloride 104 mmol/L (98-107); Glucose 101 mg/dl (70-99); Potassium 4.7 mmol/L (3.5-5.1); Sodium 140 mmol/L (135-145); Total Bilirubin 0.7 mg/dl (0.2-1.3); Total Protein 7.6 g/dl (6.3-8.2); eGFR > 60.00
[2025-02-08 13:30] LABS: Erythrocyte Sed Rate 7 mm/hour (0-20)
== END ==
LOC: REG 10:30
PROVIDERS: ATTENDING PHYSICIAN Student in an Organized Health Care Education/Training Program; FAMILY PHYSICIAN Nurse Practitioner
DX: M79.7 Fibromyalgia (principal)
CPT/HCPCS: 36415; 80053; 85025; 85652; 86140

== ENCOUNTER → 2025-02-28 17:09 | Outpatient (REF) | payer BC, SELFPAY | LOC: RAD 17:09 | PROVIDERS: ATTENDING PHYSICIAN Obstetrics & Gynecology Gynecology; FAMILY PHYSICIAN Nurse Practitioner | DX: D25.1 Intramural leiomyoma of uterus (principal) | CPT/HCPCS: 76830; 76856 ==

== ENCOUNTER → 2025-03-05 16:18 | Outpatient (REF) | payer BC, SELFPAY ==
[2025-03-05 17:34] LABS: ALT (SGPT) 18 U/L (0-35); AST (SGOT) 23 U/L (14-36); Albumin 4.6 g/dl (3.5-5.0); Alkaline Phosphatase 44 U/L (38-126); Blood Urea Nitrogen 14 mg/dl (7-17); Carbon Dioxide 29 mmol/L (22-30); Chloride 103 mmol/L (98-107); Glucose 100 mg/dl (70-99); Magnesium 2.1 mg/dl (1.6-2.3); Phosphorus 4.2 mg/dl (2.5-4.5); Potassium 4.4 mmol/L (3.5-5.1); Sodium 139 mmol/L (135-145); Total Bilirubin 0.5 mg/dl (0.2-1.3); Total Protein 7.2 g/dl (6.3-8.2); eGFR > 60.00
== END ==
LOC: REG 16:18
PROVIDERS: ATTENDING PHYSICIAN Student in an Organized Health Care Education/Training Program; FAMILY PHYSICIAN Nurse Practitioner
DX: M62.838 Other muscle spasm (principal)
CPT/HCPCS: 36415; 80053; 83735; 84100

== ENCOUNTER → 2025-03-22 11:31 | Outpatient (REF) | payer BC, SELFPAY ==
[2025-03-22 12:29] LABS: Hematocrit 46.6 % (37.0-47.0); Hemoglobin 16.0 g/dL (12.0-16.0); Mean Corp Hgb Conc. 34.3 g/dL (33.0-37.0); Mean Corpuscular Volume 89.3 fL (81.0-99.0); Nucleated Red Blood Cells % 0 %; Platelet Count 319 10^3/uL (130-400); Red Cell Dist. Width 14.0 % (11.5-14.5)
[2025-03-22 12:57] LABS: C-Reactive Protein < 5.00 mg/L (0.0-10.00)
[2025-03-22 12:58] LABS: Total Iron Binding Capacity 293 ug/dl (265-497)
[2025-03-22 13:32] LABS: Ferritin 50.2 ng/ml (11.1-264.0)
== END ==
LOC: REG 11:31
PROVIDERS: ATTENDING PHYSICIAN Nurse Practitioner
DX: I10 Essential (primary) hypertension (principal); N93.9 Abnormal uterine and vaginal bleeding, unspecified; D21.9 Benign neoplasm of connective and other soft tissue, unspecified; D64.9 Anemia, unspecified; G43.909 Migraine, unspecified, not intractable, without status migrainosus
CPT/HCPCS: 36415; 82728; 83550; 85025; 86140

== ENCOUNTER → 2025-04-09 15:09 | Outpatient (REF) | payer BC, SELFPAY | LOC: HWRAD 15:09 | PROVIDERS: ATTENDING PHYSICIAN Nurse Practitioner | DX: D17.1 Benign lipomatous neoplasm of skin and subcutaneous tissue of trunk (principal) | CPT/HCPCS: 76536 ==

== ENCOUNTER → 2025-04-12 10:47 | Outpatient (REF) | payer BC, SELFPAY | LOC: RCS 10:47 | PROVIDERS: ATTENDING PHYSICIAN Nurse Practitioner | DX: R00.0 Tachycardia, unspecified (principal) | CPT/HCPCS: 93225; 93226 ==

== ENCOUNTER 2025-04-18 09:13 | Emergency (ER) | payer BC, MEDICARE, SELFPAY ==
[2025-04-18 09:18] VITALS: BP 165/97
[2025-04-18 09:54] VITALS: BP 157/91
[2025-04-18 10:00] VITALS: BP 163/80
--- NOTE | 2025-04-18 10:15 | ED.GENMED ---
History of Present Illness
General
Chief Complaint: Heart Rate Problem
Source: patient
Exam Limitations: none
Time Seen by Provider: 04/18/25 10:05
Nursing documentation reviewed up to this point in time: agreed with
History of Present Illness
History of Present Illness:
55-year-old female with history of GERD iron deficiency anemia, perimenopausal, anxiety/depression presents for feeling 'off.' presents with chest issues and palpitations that began one month ago. She initially thought these symptoms might be due
to panic attacks, but now feels that they are different. Last week, her primary care physician ordered a 24-hour Holter monitor, which revealed premature ventricular contractions (PVCs) and some instances of a slow heart rate. Although not deemed
concerning by the sheet rock taper, further testing was ordered, including a treadmill stress test and a seven-day heart monitor patch, which she will turkey picker in 2 days.
Over the past 12 hours, the patient describes her heart rate as erratic and notes episodes of dizziness and lightheadedness that have become more frequent. These episodes are associated with nausea that varies in intensity. She reports sensations of
palpitations, sometimes when rolling over in bed, causing a feeling of an accelerated heart rate that subsides after about 30 seconds to a minute. She feels slightly short of breath during these episodes and experienced chills without numbness or
weakness. She did not have vomiting, diarrhea, or constipation.
The patient has had panic attacks throughout her life and typically manages them with as-needed medications such as alprazolam, last dose 2 days ago.
Past History
Past History
ED Past Medical History: Other (Fibromyalgia, gastroparesis, uterine fibroids)
Social History
Tobacco: Non-smoker
Alcohol: None
Personal:
Living: with family
Review of Systems
Review of Systems
Allergies reviewed?: Yes
All Other Systems: ROS reviewed and negative except as documented in HPI and ROS
Constitutional: Denies fever or fatigue
Cardiac: Reports palpitations
Phy Exam
Physical Exam
Physical Exam:
GENERAL: No acute distress. A&Ox3.
CONSTITUTIONAL: Afebrile.
EYES: clear, conjunctivae normal
ENMT: moist mucus membranes, Pharynx nl
RESPIRATORY: Regular respirations, nonlabored, lungs clear.
CARDIOVASCULAR: Regular rate and rhythm, no murmurs, no rubs.
GI: Soft, nontender, normal BS
MUSCULOSKELETAL: Moves with ease. Well perfused.
SKIN: Warm, dry, pink
PSYCH: Normal mood and affect. Well kept, interactive and appropriate
NEUROLOGIC: Awake, alert and oriented. No focal neurological deficits
Course
Orders/Labs/Results
Orders:
Orders
04/18/25 09:24
Electrocardiogram (*1) Urgent
Reason for Study: Chest Pain
EKG- Treatment ONCE
04/18/25 10:28
Complete Blood Count/With Diff Urgent
Comprehensive Metabolic Panel Urgent
Magnesium Urgent
TSH Reflex To Free T4 Urgent
Troponin I Urgent
04/18/25 11:55
CR Chest - 2 Views Urgent
Comment:
Reason For Exam: ch pain
Abnormal Lab Results
04/18/25
10:28
Hgb 16.1 H g/dL
(12.0-16.0)
Absolute Lymphs (auto) 1.1 L 10^3/uL
(1.2-3.4)
Albumin 5.1 H g/dl
(3.5-5.0)
04/18/25 10:28
04/18/25 10:28
Vital Signs
Initial and Last Documented VS:
Initial Vital Signs
Temp BP Pulse Ox
98.3 F 165/97 99
04/18/25 09:18 04/18/25 09:18 04/18/25 09:18
Last Documented Vital Signs
Temp Pulse Resp BP Pulse Ox
98.1 F 77 18 134/86 99
04/18/25 12:52 04/18/25 12:52 04/18/25 12:52 04/18/25 12:52 04/18/25 12:52
MDM/Problems Addressed
Differential Diagnosis Includes:
1. Atrial fibrillation
2. Premature ventricular contractions (PVCs)
3. Anxiety or panic disorder
4. Hypertension with possible hypertensive urgency
5. Coronary artery disease
6. Hyperthyroidism
7. Anemia
8. Metabolic imbalance (e.g., electrolyte disorders)
MDM/Problems Addressed:
55-year-old female with history of GERD iron deficiency anemia, perimenopausal, anxiety/depression presents for feeling 'off.' presents with chest issues and palpitations that began one month ago. She initially thought these symptoms might be due
to panic attacks, but now feels that they are different. Last week, her primary care physician ordered a 24-hour Holter monitor, which revealed premature ventricular contractions (PVCs) and some instances of a slow heart rate. Although not deemed
concerning by the sheet rock taper, further testing was ordered, including a treadmill stress test and a seven-day heart monitor patch, which she will turkey picker in 2 days.
Over the past 12 hours, the patient describes her heart rate as erratic and notes episodes of dizziness and lightheadedness that have become more frequent. These episodes are associated with nausea that varies in intensity. She reports sensations of
palpitations, sometimes when rolling over in bed, causing a feeling of an accelerated heart rate that subsides after about 30 seconds to a minute. She feels slightly short of breath during these episodes and experienced chills without numbness or
weakness. She did not have vomiting, diarrhea, or constipation.
The patient has had panic attacks throughout her life and typically manages them with as-needed medications such as alprazolam, last dose 2 days ago.
EKG: NSR
CBC, CMP normal
Troponin WNL
TSH normal
Magnesium normal.
Bedside cardiac continuous monitoring: NSR, very rare PVC
Pt states her ch feels like I drank 10 cups of coffee
CXR:
Stable for discharge. Has appt in 2 days for treadmill test and monitor patch.
*Radiology
Radiology exam reviewed: preliminary read by ED provider (Chest x-ray NAD)
*Pulse Oximetry
SaO2: 99
Oxygen Mode of Delivery: Room air
Patient hypoxic: no
*EKG
EKG Intrepretation Date: 04/18/25
Interpretation: normal
Heart Rate: 84
Rate: normal
Rhythm: sinus
Melba: normal axis
Interval: normal interval
QRS Pattern: normal QRS
Ischemia: no ischemia
*Critical Care Note
Total Time (30-74mins, 75-104mins- exclusive of procedures): Not Applicable
ED Attending Note
-
Portions of this chart may have been created with voice recognition software.� Occasional wrong word or��sound alike� substitutions may have occurred due to the inherent limitations of voice recognition software.
Discharge Plan
Departure
Patient Disposition: Home (Routine Discharge)
Date of Disposition: 04/18/25
Time of Disposition: 12:36
Patient with high blood pressure during this ER visit?: No
Condition: Good
Discharge Problem:
Palpitations
Instructions: Ventricular premature beats, Palpitations (DC)
Prescriptions:
No Action
cyclobenzaprine 10 mg Tablet
10 mg PO HS PRN (Reason: muscle spasms)
Patient Comments:
11/13/2023, [facility] records from 09/01/2023. #14 tablets.
polyethylene glycol 3350 [Miralax] 17 gram Powder In Packet
17 g PO DAILY PRN (Reason: constipation)
Theragen Tablet
1 tab PO DAILY
acetaminophen [Tylenol Extra Strength] 500 mg Tablet
500 mg PO DAILYPRN PRN (Reason: mild pain)
calcium carbonate [Calcium 500] 500 mg calcium (1,250 mg) Tablet
500 mg PO DAILY
ibuprofen [Advil] 200 mg Tablet
200 mg PO DAILYPRN PRN (Reason: mild pain)
esomeprazole magnesium [Nexium] 20 mg Capsule,Delayed Release(Dr/Ec)
20 mg PO .MID-DAY
melatonin 1 mg Tablet
2 mg PO HS
cholecalciferol (vitamin D3) 50 mcg (2,000 unit) Tablet
50 mcg PO DAILY
Vitamin C
1 tab PO DAILY
Referrals:
Your sheet rock taper at [facility] [Other] - Keep scheduled appt
Ivana South CRNP [Family Provider, Internal Medicine]
Activity Restrictions/Additional Instructions:
As we discussed, nothing worrisome in your workup here today. There are rare PVCs on your equipment monitor phototypesetting
Keep your appointment in 2 days for your cardiac tests
Interventions
Interventions:
*Risk Screen - Suicide Last Done: 04/18/25 09:20
*General Assessment Last Done: 04/18/25 10:42
*Neglect/Abuse Screening Last Done: 04/18/25 10:42
*Nursing Disposition Last Done: 04/18/25 13:51
ED- Cardiac Assessment Last Done: 04/18/25 10:42
ED- Pulmonary Assessment Last Done: 04/18/25 10:42
Discharge Date and Time
Discharge Date/Time: 04/18/25 13:55
Print Language: ESTONIAN
[2025-04-18 10:36] LABS: Hematocrit 46.3 % (37.0-47.0); Hemoglobin 16.1 g/dL (12.0-16.0); Mean Corp Hgb Conc. 34.8 g/dL (33.0-37.0); Mean Corpuscular Volume 87.2 fL (81.0-99.0); Nucleated Red Blood Cells % 0 %; Platelet Count 291 10^3/uL (130-400); Red Cell Dist. Width 14.5 % (11.5-14.5)
[2025-04-18 10:50] LABS: ALT (SGPT) 21 U/L (0-35); AST (SGOT) 26 U/L (14-36); Albumin 5.1 g/dl (3.5-5.0); Alkaline Phosphatase 58 U/L (38-126); Blood Urea Nitrogen 11 mg/dl (7-17); Calcium 10.1 mg/dl (8.4-10.2); Carbon Dioxide 26 mmol/L (22-30); Chloride 104 mmol/L (98-107); Glucose 98 mg/dl (70-99); Magnesium 1.9 mg/dl (1.6-2.3); Potassium 4.1 mmol/L (3.5-5.1); Sodium 139 mmol/L (135-145); Total Protein 7.8 g/dl (6.3-8.2); eGFR > 60.00
[2025-04-18 11:02] LABS: Troponin I < 0.012 ng/ml
[2025-04-18 12:52] VITALS: BP 134/86
== END 2025-04-18 13:55 | disposition home or self-care (01) ==
LOC: EMR 09:13
PROVIDERS: Registered Nurse; EMERGENCY PHYSICIAN Emergency Medicine; FAMILY PHYSICIAN Nurse Practitioner
DX: R00.2 Palpitations (principal); R07.89 Other chest pain; R42 Dizziness and giddiness; R11.0 Nausea; R06.02 Shortness of breath; R68.83 Chills (without fever); K21.9 Gastro-esophageal reflux disease without esophagitis; D50.9 Iron deficiency anemia, unspecified; I49.3 Ventricular premature depolarization; F41.9 Anxiety disorder, unspecified; F32.A Depression, unspecified; Z78.0 Asymptomatic menopausal state; M79.7 Fibromyalgia; K31.84 Gastroparesis; Z88.8 Allergy status to other drugs, medicaments and biological substances
CPT/HCPCS: 99284; 71046; 80053; 83735; 84443; 84484; 85025; 93005

== ENCOUNTER 2025-04-29 04:21 | Emergency (ER) | payer BC, MEDICARE, SELFPAY ==
[2025-04-29 04:23] VITALS: BP 178/76
[2025-04-29 05:04] LABS: Hematocrit 46.5 % (37.0-47.0); Hemoglobin 16.0 g/dL (12.0-16.0); Mean Corp Hgb Conc. 34.4 g/dL (33.0-37.0); Mean Corpuscular Volume 88.4 fL (81.0-99.0); Nucleated Red Blood Cells % 0 %; Platelet Count 331 10^3/uL (130-400); Red Cell Dist. Width 14.3 % (11.5-14.5)
[2025-04-29 05:27] LABS: ALT (SGPT) 22 U/L (0-35); AST (SGOT) 26 U/L (14-36); Albumin 4.9 g/dl (3.5-5.0); Alkaline Phosphatase 60 U/L (38-126); Blood Urea Nitrogen 10 mg/dl (7-17); Calcium 10.4 mg/dl (8.4-10.2); Carbon Dioxide 25 mmol/L (22-30); Chloride 104 mmol/L (98-107); Glucose 107 mg/dl (70-99); Potassium 3.8 mmol/L (3.5-5.1); Sodium 139 mmol/L (135-145); Total Protein 7.5 g/dl (6.3-8.2); eGFR > 60.00
[2025-04-29 05:40] LABS: Troponin I < 0.012 ng/ml
[2025-04-29 05:59] LABS: TSH 3.69 uIU/ml (0.47-4.68)
--- NOTE | 2025-04-29 07:42 | ED.GENMED ---
History of Present Illness
General
Chief Complaint: Heart Rate Problem
Time Seen by Provider: 04/29/25 07:00
History of Present Illness
History of Present Illness:
55-year-old female with prior history of palpitations presenting to the emergency department for palpitations. Patient reports that this has been an ongoing issue, did see a conservation educator last week after having a Holter monitor for 2 days. Holter
monitor showed PACs and PVCs. She was since given a 7-day Holter monitor. Notes prior to arrival her heart rate was going up and down which prompted her to come to the hospital, was having difficulty sleeping. Denies associated pain. Does note
that her blood pressure has also been slightly elevated. She notes that she previously had been on metoprolol for the palpitations for 4 days, however after stopping the medication felt that it got worse. Denies fever. Denies abdominal pain or GI
symptoms. Denies supplement use. Currently has Holter monitor in place. Denies known thyroid issues. Denies additional acute medical complaints
Past History
Past History
ED Past Medical History: Other (Fibromyalgia, gastroparesis, uterine fibroids)
Social History
Tobacco: Non-smoker
Alcohol: None
Personal:
Living: with family
Phy Exam
Physical Exam
Physical Exam:
General: Well-appearing, no clinical signs of dehydration, nontoxic and in no acute distress
HEENT: protecting airway
Neck: appears supple
CV: Normal heart rate, regular rhythm
Resp: No accessory muscle use, no increased work of breathing, lungs clear to auscultation bilaterally
Abd: no distension
Extremities: No deformities, no swelling
Neuro: alert, no focal neurologic deficit
: deferred
Rectal: deferred
Psych: Normal affect
Skin: Intact
Course
Orders/Labs/Results
Orders:
Orders
04/29/25 04:27
Electrocardiogram (*1) Urgent
Reason for Study: Tachycardia
EKG- Treatment ONCE
04/29/25 04:39
Complete Blood Count/With Diff Urgent
Comprehensive Metabolic Panel Urgent
TSH Urgent
Troponin I Urgent
04/29/25 07:26
Electrocardiogram (*1) Urgent
Reason for Study: Palpitations
EKG- Treatment ONCE
Abnormal Lab Results
04/29/25
04:39
Glucose 107 H mg/dl
(70-99)
Calcium 10.4 H mg/dl
(8.4-10.2)
04/29/25 04:39
04/29/25 04:39
Vital Signs
Initial and Last Documented VS:
Initial Vital Signs
Temp Pulse Resp BP Pulse Ox
97.4 F 120 26 178/76 98
04/29/25 04:23 04/29/25 04:23 04/29/25 04:23 04/29/25 04:23 04/29/25 04:23
Last Documented Vital Signs
Temp Pulse Resp BP Pulse Ox
97.4 F 120 26 178/76 98
04/29/25 04:23 04/29/25 04:23 04/29/25 04:23 04/29/25 04:23 04/29/25 04:23
MDM/Problems Addressed
MDM/Problems Addressed:
55-year-old female presenting for persistent palpitations. Vital signs on arrival significant for hypertension and tachycardia.
On exam, once in examination room, heart rate has now normalized. EKG is sinus tachycardia without any arrhythmia or concerning features. Holter monitor reviewed from 04/11, no significant events, PACs and PVCs. Suspect etiology of patient's
discomfort and palpitations. Screening laboratory analysis obtained prior to my assessment, unremarkable electrolyte panel, normal TSH. Without present concern for PE given improved tachycardia, no respiratory symptoms. Patient does have a
history of panic and anxiety which I do feel is contributing to symptoms, in addition to the PVCs and PACs. Patient is also concerned about POTS, which could be a diagnosis of exclusion. Given improvement of heart rate, stable tracings on heart
monitor, do not feel patient requires any emergent intervention. Repeat EKG obtained, now sinus rhythm at a rate of 65, no PACs or PVCs. Blood pressure is slightly elevated, however feel stable for discharge with closer follow-up with cardiology
regarding 7-day Holter monitor results and potential medical therapy with beta-nate. Return precautions discussed and patient verbalized understanding.
*Pulse Oximetry
SaO2: 98
Oxygen Mode of Delivery: Room air
Patient hypoxic: no
*EKG
Interpreted by ED Provider?: Yes
EKG Intrepretation Date: 04/29/25
EKG Intrepretation Time: 07:49
Interpretation: normal
Heart Rate: 118
Rate: tachycardiac
Rhythm: sinus
[place]: normal axis
Interval: normal interval
QRS Pattern: normal QRS
Ischemia: no ischemia
*Critical Care Note
Total Time (30-74mins, 75-104mins- exclusive of procedures): Not Applicable
ED Attending Note
-
Portions of this chart may have been created with voice recognition software.� Occasional wrong word or��sound alike� substitutions may have occurred due to the inherent limitations of voice recognition software.
Discharge Plan
Departure
Prescriptions:
No Action
cyclobenzaprine 10 mg Tablet
10 mg PO HS PRN (Reason: muscle spasms)
Patient Comments:
11/13/2023, [facility] records from 09/01/2023. #14 tablets.
polyethylene glycol 3350 [Miralax] 17 gram Powder In Packet
17 g PO DAILY PRN (Reason: constipation)
Theragen Tablet
1 tab PO DAILY
acetaminophen [Tylenol Extra Strength] 500 mg Tablet
500 mg PO DAILYPRN PRN (Reason: mild pain)
calcium carbonate [Calcium 500] 500 mg calcium (1,250 mg) Tablet
500 mg PO DAILY
ibuprofen [Advil] 200 mg Tablet
200 mg PO DAILYPRN PRN (Reason: mild pain)
esomeprazole magnesium [Nexium] 20 mg Capsule,Delayed Release(Dr/Ec)
20 mg PO .MID-DAY
melatonin 1 mg Tablet
2 mg PO HS
cholecalciferol (vitamin D3) 50 mcg (2,000 unit) Tablet
50 mcg PO DAILY
Vitamin C
1 tab PO DAILY
Referrals:
Ivana South CRNP [Family Provider, Internal Medicine]
Discharge Date and Time
Print Language: JAPANESE
[2025-04-29 07:44] VITALS: BP 167/82
[2025-04-29 07:52] VITALS: BMI 22.5
[2025-04-29 08:05] VITALS: BP 163/88
== END 2025-04-29 08:30 | disposition home or self-care (01) ==
LOC: EMR 04:21
PROVIDERS: Emergency Medicine; EMERGENCY PHYSICIAN Student in an Organized Health Care Education/Training Program; FAMILY PHYSICIAN Nurse Practitioner
DX: I49.3 Ventricular premature depolarization (principal); I49.1 Atrial premature depolarization; F41.9 Anxiety disorder, unspecified; M79.7 Fibromyalgia; K31.84 Gastroparesis
CPT/HCPCS: 99284; 80053; 84443; 84484; 85025; 93005

== ENCOUNTER → 2025-05-02 14:21 | Outpatient (REF) | payer BC, MEDICARE, SELFPAY ==
[2025-05-02 15:43] LABS: Lithium < 0.2 mmol/L (0.6-1.2)
[2025-05-02 16:04] LABS: FSH 115.0 mIU/ml
[2025-05-02 16:06] LABS: Free T3 3.30 pg/ml (2.77-5.27)
== END ==
LOC: REG 14:21
PROVIDERS: ATTENDING PHYSICIAN Internal Medicine; FAMILY PHYSICIAN Nurse Practitioner
DX: R00.2 Palpitations (principal); I10 Essential (primary) hypertension; F41.9 Anxiety disorder, unspecified; E78.5 Hyperlipidemia, unspecified
CPT/HCPCS: 36415; 80178; 82670; 83001; 83002; 84439; 84481

== ENCOUNTER → 2025-05-20 15:33 | Outpatient (REF) | payer BC, MEDICARE, SELFPAY | LOC: HWRCS 15:33 | PROVIDERS: FAMILY PHYSICIAN Nurse Practitioner | DX: R00.2 Palpitations (principal) | CPT/HCPCS: 93306 ==

== ENCOUNTER → 2025-05-20 17:21 | Outpatient (REF) | payer BC, SELFPAY | LOC: RAD 17:21 | PROVIDERS: ATTENDING PHYSICIAN Nurse Practitioner | DX: M54.2 Cervicalgia (principal) | CPT/HCPCS: 72050 ==

== ENCOUNTER → 2025-06-25 15:21 | Outpatient (REF) | payer BC, SELFPAY | LOC: HWWDC 15:21 | PROVIDERS: ATTENDING PHYSICIAN Nurse Practitioner | DX: Z12.31 Encounter for screening mammogram for malignant neoplasm of breast (principal) | CPT/HCPCS: 77063; 77067 ==

== ENCOUNTER 2025-08-08 05:52 | Day surgery (SDC) | payer BC, SELFPAY ==
[2025-08-08 06:15] VITALS: BP 152/98
[2025-08-08 06:34] VITALS: BMI 20.1
[2025-08-08 06:35] VITALS: BMI 20.1
--- NOTE | 2025-08-08 06:43 | HP.FOC2 ---
Focused History & Physical
Chief Complaint
HPI:
Chief Complaint: Posterior neck subcutaneous lipoma
HPI / Indication for Planned Procedure: Patient is a 55-year-old male recently seen in outpatient surgical evaluation secondary to a visible and palpable mass along the central posterior neck.Ultrasound confirmed 4.4 x 1.4 x 4.4 cm subcutaneous
lipomatous mass. This is also consistent with physical examination. He presents today for scheduled surgical excision.
Relevant Past Medical History: Other (Gastroparesis/gastritis, anxiety/depression, history of anemia, fibroids, GERD)
Relevant Social History: Negative
Relevant Family History: Negative
Relevant Past Surgical History: Positive for (D&C/hysteroscopy)
Review of Systems
Review of Pertinent Systems: All Systems Negative
Medication
See Medication form for detailed medications: Yes
Medication List (including Herbals & OTC):
calcium carbonate 500 mg PO DAILY 11/13/23
cholecalciferol (vitamin D3) 50 mcg (2,000 unit) tablet 50 mcg PO DAILY 11/13/23
esomeprazole magnesium 20 mg capsule,delayed release (Nexium) 20 mg PO PRN PRN GERD 11/13/23
therapeutic multivitamin 1 tab PO DAILY 11/13/23
calcium carbonate (Tums) 400 mg PO PRN PRN Indigestion 08/06/25
cyclobenzaprine 5 mg tablet 2.5 mg PO PRN PRN Fibromyalgia 08/06/25
diphenhydramine HCl 12.5 mg/5 mL oral elixir 12.5 - 25 mg PO HS PRN PRN 08/06/25
lorazepam 0.5 mg tablet (Ativan) 0.25 mg PO PRN PRN Anxiety 08/06/25
melatonin 1 mg chewable tablet 4 mg PO HS 08/06/25
Medications Reviewed: Yes
Allergies and Reactions
Noted Allergies and Reactions:
Allergy/AdvReac Type Severity Reaction Status Date / Time
azithromycin Allergy Rash Verified 08/08/25 06:29
gadopentetic acid (From Allergy Anaphylaxis Verified 08/08/25 06:29
Magnevist)
metronidazole (From Flagyl) Allergy Rash Verified 08/08/25 06:29
nitrofurantoin (From Allergy Welts Verified 08/08/25 06:29
Macrobid)
Quinolones Allergy Hives Verified 08/08/25 06:29
trovafloxacin (From Trovan) Allergy Hallucinati Verified 08/08/25 06:29
ons
Pertinent Physical Exam
All Other Systems: Negative
Head/Neck: Other (Soft, mobile lipomatous mass along the midline of the posterior neck)
Lungs: Normal
Heart: Normal
Abdomen: Normal
Extremities: Normal
Neurological: Normal
Diagnosis / Assessment
55-year-old female presenting for excision of a posterior neck subcutaneous lipoma
Plan / Procedure
Excision posterior neck subcutaneous lipoma
Anesthesia/Sedation to be done by Anesthesia Provider: Yes
[2025-08-08] MEDS: NORMOSOL-R/PLASMALYTE-A 1000 IV (06:46)
[2025-08-08] MEDS: TYLENOL 1000 MG PO (06:46)
--- NOTE | 2025-08-08 06:46 | W.SUR.PREOP ---
Pre-Operative Surgical Note
-
I have examined this patient prior to the performance of the scheduled procedure.
The patient's condition is unchanged from the time of the current History and
Physical and the patient is able to undergo the scheduled procedure.
--- NOTE | 2025-08-08 08:00 | W.IMMPOSTOP ---
Addendum entered and electronically signed by Juan R Naqvi MD 08/08/25 08:06:
#[id number]
Original Note:
Surgical Immed Post Op Note
-
Primary Surgeon: Juan R Naqvi MD
Assisting Surgeon: Pamela JOHNSON
Pre-op Diagnosis: Posterior neck subcutaneous lipoma
Post-op Diagnosis: Posterior neck subcutaneous lipoma; 4 cm
Procedure Performed: Excision posterior neck subcutaneous lipoma
Anesthesia Type: MAC +1% lidocaine with epinephrine
Specimen / Cultures: Neck lipoma
Estimated Blood Loss: 4 mL
Complications: None immediate
Operative Findings: Lobulated but encapsulated subcutaneous lipoma of the posterior neck. Deep to Mayte's layer but no invasion into muscle. Excised in its entirety. Multilayer closure.
[2025-08-08 08:01] VITALS: BP 120/90
[2025-08-08 08:15] VITALS: BP 131/70
[2025-08-08 08:30] VITALS: BP 136/69
[2025-08-08 08:34] VITALS: BP 132/76
== END 2025-08-08 08:45 | disposition home or self-care (01) ==
LOC: SDS 05:52
PROVIDERS: ATTENDING PHYSICIAN Surgery
DX: D17.9 Benign lipomatous neoplasm, unspecified (principal); D17.0 Benign lipomatous neoplasm of skin and subcutaneous tissue of head, face and neck
CPT/HCPCS: 21552; 88304; 88341; 88342

== ENCOUNTER → 2025-09-10 13:09 | Outpatient (REF) | payer BC, SELFPAY ==
[2025-09-10 14:18] LABS: Hematocrit 44.0 % (37.0-47.0); Hemoglobin 15.1 g/dL (12.0-16.0); Mean Corp Hgb Conc. 34.3 g/dL (33.0-37.0); Mean Corpuscular Volume 90.7 fL (81.0-99.0); Nucleated Red Blood Cells % 0 %; Platelet Count 274 10^3/uL (130-400); Red Cell Dist. Width 13.2 % (11.5-14.5)
[2025-09-10 14:42] LABS: Iron 139 ug/dl (37-170)
[2025-09-10 14:52] LABS: Total Iron Binding Capacity 303 ug/dl (265-497)
== END ==
LOC: REG 13:09
PROVIDERS: ATTENDING PHYSICIAN Physician Assistant Medical; FAMILY PHYSICIAN Nurse Practitioner
DX: N92.4 Excessive bleeding in the premenopausal period (principal)
CPT/HCPCS: 36415; 83540; 83550; 85025